=== PATIENT | female | born 1950 | race Caucasian/White ===

== ENCOUNTER 2025-06-22 11:52 | Emergency (ER) | payer BC, SELFPAY ==
--- OUTSIDE RECORDS SUMMARY | 2025-06-22 11:57 | XMS_ITS | Encounter Summary ---
Author Organization [facility] Address [address] [place] [address] Care Team Providers Care Continuity Manager Name Role Phone Niyah Worthy MD Primary Care Provider Encounter Details Date Type Department Care Team (Late st Contact Info) Description 12/11/2004 Outpatient [facility] Primary Care - [address] [address] Wellington Ayala MD NO ADDRESS ON FILE Social History Tobacco Use Types Packs/Day Years Used Date Smoking Tobacco: Never Assessed Comments Unknown Sex and Gender Information Value Date Recorded Sex Assigned at Not on file Legal Sex Female 4:59 AM BED AND BREAKFAST COOK Gender Identity Not on file Sexual Orientation Not on file documented as of this encounter Plan of Treatment Not on file documented as of this encounter Visit Diagnoses Not on filedocumented in this encounter Care Teams Continuity Manager Relationship Specialty Start Date End Date Niyah Worthy MD PCP - General Internal Medicine 07/29/14 documented as of this encounter
--- OUTSIDE RECORDS SUMMARY | 2025-06-22 11:57 | XMS_ITS | Encounter Summary ---
Author Organization [facility] Address 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
--- OUTSIDE RECORDS SUMMARY | 2025-06-22 11:57 | XMS_ITS | Encounter Summary ---
Author Organization [facility] Address [address] [place] [address] Care Team Providers Care Product Development Specialist Name Role Phone Niyah Worthy MD Primary Care Provider Encounter Details Date Type Department Care Team (Late st Contact Info) Description 08/01/2003 Outpatient [facility] Primary Care - [address] [address] Wellington Ayala MD NO ADDRESS ON FILE Social History Tobacco Use Types Packs/Day Years Used Date Smoking Tobacco: Never Assessed Comments Unknown Sex and Gender Information Value Date Recorded Sex Assigned at Not on file Legal Sex Female 4:59 AM INTERFACE ENGINEER Gender Identity Not on file Sexual Orientation Not on file documented as of this encounter Plan of Treatment Not on file documented as of this encounter Visit Diagnoses Not on filedocumented in this encounter Care Teams Product Development Specialist Relationship Specialty Start Date End Date Niyah Worthy MD PCP - General Internal Medicine 07/29/14 documented as of this encounter
--- OUTSIDE RECORDS SUMMARY | 2025-06-22 11:57 | XMS_ITS | Encounter Summary ---
Author Organization [facility] Address [address] [place] [address] Care Team Providers Care Equipment Maintenance Tech Name Role Phone Niyah Worthy MD Primary Care Provider [phone] Encounter Details Date Type Department Care Team (Late st Contact Info) Description 06/16/2005 Outpatient [facility] Primary Care - [address] [address] Wellington Ayala MD NO ADDRESS ON FILE Social History Tobacco Use Types Packs/Day Years Used Date Smoking Tobacco: Never Assessed Comments Unknown Sex and Gender Information Value Date Recorded Sex Assigned at Not on file Legal Sex Female 4:59 AM CHECKER CASHIER Gender Identity Not on file Sexual Orientation Not on file documented as of this encounter Plan of Treatment Not on file documented as of this encounter Visit Diagnoses Not on filedocumented in this encounter Care Teams Equipment Maintenance Tech Relationship Specialty Start Date End Date Niyah Worthy MD PCP - General Internal Medicine 07/29/14 documented as of this encounter
--- OUTSIDE RECORDS SUMMARY | 2025-06-22 11:57 | XMS_ITS | Encounter Summary ---
Author Organization [facility] Address [address] [place] [address] Care Team Providers Care Industrial Photographer Name Role Phone Niyah Worthy MD Primary Care Provider [phone] Encounter Details Date Type Department Care Team (Late st Contact Info) Description 03/03/2004 Outpatient [facility] Primary Care - [address] [address] Wellington Ayala MD NO ADDRESS ON FILE Social History Tobacco Use Types Packs/Day Years Used Date Smoking Tobacco: Never Assessed Comments Unknown Sex and Gender Information Value Date Recorded Sex Assigned at Not on file Legal Sex Female 4:59 AM HOME ATTENDANT Gender Identity Not on file Sexual Orientation Not on file documented as of this encounter Plan of Treatment Not on file documented as of this encounter Visit Diagnoses Not on filedocumented in this encounter Care Teams Industrial Photographer Relationship Specialty Start Date End Date Niyah Worthy MD PCP - General Internal Medicine 07/29/14 documented as of this encounter
--- OUTSIDE RECORDS SUMMARY | 2025-06-22 11:57 | XMS_ITS | Encounter Summary ---
Author Organization [facility] Address [address] [place] [address] Care Team Providers Care Glass Cutter Helper Name Role Phone Niyah Worthy MD Primary Care Provider Encounter Details Date Type Department Care Team (Late st Contact Info) Description 10/28/1999 Outpatient Historical [facility] Ravi Crews MD Social History Tobacco Use Types Packs/Day Years Used Date Smoking Tobacco: Never Assessed Comments Unknown Sex and Gender Information Value Date Recorded Sex Assigned at Not on file Legal Sex Female 4:59 AM ADMISSION NURSE COORDINATOR Gender Identity Not on file Sexual Orientation Not on file documented as of this encounter Plan of Treatment Not on file documented as of this encounter Visit Diagnoses Not on filedocumented in this encounter Care Teams Glass Cutter Helper Relationship Specialty Start Date End Date Niyah Worthy MD PCP - General Internal Medicine 07/29/14 documented as of this encounter
--- OUTSIDE RECORDS SUMMARY | 2025-06-22 11:57 | XMS_ITS | Encounter Summary ---
Author Organization [facility] Address [address] [place] [address] Care Team Providers Care Condominium Association Manager Name Role Phone Niyah Worthy MD Primary Care Provider Encounter Details Date Type Department Care Team (Late st Contact Info) Description 03/11/1999 Outpatient Historical [facility] Ravi Crews MD Social History Tobacco Use Types Packs/Day Years Used Date Smoking Tobacco: Never Assessed Comments Unknown Sex and Gender Information Value Date Recorded Sex Assigned at Not on file Legal Sex Female 4:59 AM INTAKE CLERK Gender Identity Not on file Sexual Orientation Not on file documented as of this encounter Plan of Treatment Not on file documented as of this encounter Visit Diagnoses Not on filedocumented in this encounter Care Teams Condominium Association Manager Relationship Specialty Start Date End Date Niyah Worthy MD PCP - General Internal Medicine 07/29/14 documented as of this encounter
--- OUTSIDE RECORDS SUMMARY | 2025-06-22 11:57 | XMS_ITS | Encounter Summary ---
Author Organization [facility] Address [address] [place] [address] Care Team Providers Care District Manager Major Accounts Sales Name Role Phone Niyah Worthy MD Primary Care Provider Encounter Details Date Type Department Care Team (Late st Contact Info) Description 02/26/2003 Outpatient [facility] Primary Care - [address] [address] Wellington Ayala MD NO ADDRESS ON FILE Social History Tobacco Use Types Packs/Day Years Used Date Smoking Tobacco: Never Assessed Comments Unknown Sex and Gender Information Value Date Recorded Sex Assigned at Not on file Legal Sex Female 4:59 AM QUILLER HAND Gender Identity Not on file Sexual Orientation Not on file documented as of this encounter Plan of Treatment Not on file documented as of this encounter Visit Diagnoses Not on filedocumented in this encounter Care Teams District Manager Major Accounts Sales Relationship Specialty Start Date End Date Niyah Worthy MD PCP - General Internal Medicine 07/29/14 documented as of this encounter
--- OUTSIDE RECORDS SUMMARY | 2025-06-22 11:57 | XMS_ITS | Encounter Summary ---
Author Organization [facility] Address [address] [place] [address] Care Team Providers Care Inspector Grain Mill Products Name Role Phone Niyah Worthy MD Primary Care Provider [phone] Encounter Details Date Type Department Care Team (Late st Contact Info) Description 11/27/2002 Outpatient [facility] Primary Care - [address] [address] Wellington Ayala MD NO ADDRESS ON FILE Social History Tobacco Use Types Packs/Day Years Used Date Smoking Tobacco: Never Assessed Comments Unknown Sex and Gender Information Value Date Recorded Sex Assigned at Not on file Legal Sex Female 4:59 AM ELECTRICAL SIGN WIRER Gender Identity Not on file Sexual Orientation Not on file documented as of this encounter Plan of Treatment Not on file documented as of this encounter Visit Diagnoses Not on filedocumented in this encounter Care Teams Inspector Grain Mill Products Relationship Specialty Start Date End Date Niyah Worthy MD PCP - General Internal Medicine 07/29/14 documented as of this encounter
--- OUTSIDE RECORDS SUMMARY | 2025-06-22 11:57 | XMS_ITS | Encounter Summary ---
Author Organization [facility] Address [address] [place] [address] Care Team Providers Care Audio Visual Technician Name Role Phone Niyah Worthy MD Primary Care Provider Encounter Details Date Type Department Care Team (Late st Contact Info) Description 04/16/[address] 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
--- OUTSIDE RECORDS SUMMARY | 2025-06-22 11:57 | XMS_ITS | Encounter Summary ---
Author Organization [facility] Address [address] [place] [address] Care Team Providers Care Mobile Manager Name Role Phone Niyah Worthy MD Primary Care Provider [phone] Encounter Details Date Type Department Care Team (Late st Contact Info) Description 08/28/2002 Outpatient [facility] Primary Care - [address] [phone] Wellington Ayala MD NO ADDRESS ON FILE Social History Tobacco Use Types Packs/Day Years Used Date Smoking Tobacco: Never Assessed Comments Unknown Sex and Gender Information Value Date Recorded Sex Assigned at Not on file Legal Sex Female 4:59 AM TOOL ENGINE LATHE SET UP OPERATOR Gender Identity Not on file Sexual Orientation Not on file documented as of this encounter Plan of Treatment Not on file documented as of this encounter Visit Diagnoses Not on filedocumented in this encounter Care Teams Mobile Manager Relationship Specialty Start Date End Date Niyah Worthy MD PCP - General Internal Medicine 07/29/14 documented as of this encounter
--- OUTSIDE RECORDS SUMMARY | 2025-06-22 11:57 | XMS_ITS | Encounter Summary ---
Author Organization [facility] Address [address] [place] [address] Care Team Providers Care Earth Science Technical Officer Name Role Phone Niyah Worthy MD Primary Care Provider Encounter Details Date Type Department Care Team (Late st Contact Info) Description 04/27/1999 Outpatient Historical [facility] Ravi Crews MD Social History Tobacco Use Types Packs/Day Years Used Date Smoking Tobacco: Never Assessed Comments Unknown Sex and Gender Information Value Date Recorded Sex Assigned at Not on file Legal Sex Female 4:59 AM DINKEY OPERATOR Gender Identity Not on file Sexual Orientation Not on file documented as of this encounter Plan of Treatment Not on file documented as of this encounter Visit Diagnoses Not on filedocumented in this encounter Care Teams Earth Science Technical Officer Relationship Specialty Start Date End Date Niyah Worthy MD PCP - General Internal Medicine 07/29/14 documented as of this encounter
--- OUTSIDE RECORDS SUMMARY | 2025-06-22 11:57 | XMS_ITS | Encounter Summary ---
Author Organization [facility] Address [address] [place] [address] Care Team Providers Care Round Kiln Drawer Name Role Phone Nyiah Worthy MD Primary Care Provider Encounter Details Date Type Department Care Team (Late st Contact Info) Description 12/11/[address] [facility] Primary Care - [address] [phone] Wellington Ayala MD NO ADDRESS ON FILE Social History Tobacco Use Types Packs/Day Years Used Date Smoking Tobacco: Never Assessed Comments Unknown Sex and Gender Information Value Date Recorded Sex Assigned at Not on file Legal Sex Female 4:59 AM BILLET INSPECTOR Gender Identity Not on file Sexual Orientation Not on file documented as of this encounter Plan of Treatment Not on file documented as of this encounter Visit Diagnoses Not on filedocumented in this encounter Care Teams Round Kiln Drawer Relationship Specialty Start Date End Date Niyah Worthy MD PCP - General Internal Medicine 07/29/14 documented as of this encounter
--- OUTSIDE RECORDS SUMMARY | 2025-06-22 11:58 | XMS_ITS | Encounter Summary ---
Author Organization [facility] Address 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
--- OUTSIDE RECORDS SUMMARY | 2025-06-22 11:58 | XMS_ITS | Encounter Summary ---
Author Organization [facility] Address [address] [place] [address] Care Team Providers Care Pet Crematory Worker Name Role Phone Niyah Worthy MD Primary Care Provider Encounter Details Date Type Department Care Team (Late st Contact Info) Description 12/03/2005 Outpatient [facility] Primary Care - [address] [phone] Wellington Ayala MD NO ADDRESS ON FILE Social History Tobacco Use Types Packs/Day Years Used Date Smoking Tobacco: Never Assessed Comments Unknown Sex and Gender Information Value Date Recorded Sex Assigned at Not on file Legal Sex Female 4:59 AM STRINGING MACHINE OPERATOR Gender Identity Not on file Sexual Orientation Not on file documented as of this encounter Plan of Treatment Not on file documented as of this encounter Visit Diagnoses Not on filedocumented in this encounter Care Teams Pet Crematory Worker Relationship Specialty Start Date End Date Niyah Worthy MD PCP - General Internal Medicine 07/29/14 documented as of this encounter
--- OUTSIDE RECORDS SUMMARY | 2025-06-22 11:58 | XMS_ITS | Encounter Summary ---
Author Organization [facility] Address [address] [place] [address] Care Team Providers Care Drama Therapist Name Role Phone Niyah Worthy MD Primary Care Provider Encounter Details Date Type Department Care Team (Late st Contact Info) Description 07/03/2007 Orders Only [facility] Primary Care - [address] [place] [phone] Wellington Ayala MD NO ADDRESS ON FILE Social History Tobacco Use Types Packs/Day Years Used Date Smoking Tobacco: Never Assessed Comments Unknown Sex and Gender Information Value Date Recorded Sex Assigned at Not on file Legal Sex Female 4:59 AM LINOLEUM LAYER Gender Identity Not on file Sexual Orientation Not on file documented as of this encounter Plan of Treatment Not on file documented as of this encounter Visit Diagnoses Not on filedocumented in this encounter Care Teams Drama Therapist Relationship Specialty Start Date End Date Niyah Worthy MD PCP - General Internal Medicine 07/29/14 documented as of this encounter
--- OUTSIDE RECORDS SUMMARY | 2025-06-22 11:58 | XMS_ITS | Encounter Summary ---
Author Organization [facility] Address [address] [place] [address] Care Team Providers Care Slab Tripper Name Role Phone Niyah Worthy MD Primary Care Provider Encounter Details Date Type Department Care Team (Late st Contact Info) Description 12/03/[address] [facility] Primary Care - [address] [phone] Wellington Ayala MD NO ADDRESS ON FILE Social History Tobacco Use Types Packs/Day Years Used Date Smoking Tobacco: Never Assessed Comments Unknown Sex and Gender Information Value Date Recorded Sex Assigned at Not on file Legal Sex Female 4:59 AM FIELD AGENT Gender Identity Not on file Sexual Orientation Not on file documented as of this encounter Plan of Treatment Not on file documented as of this encounter Visit Diagnoses Not on filedocumented in this encounter Care Teams Slab Tripper Relationship Specialty Start Date End Date Niyah Worthy MD PCP - General Internal Medicine 07/29/14 documented as of this encounter
--- OUTSIDE RECORDS SUMMARY | 2025-06-22 11:58 | XMS_ITS | Encounter Summary ---
Author Organization [facility] Address [address] [place] [address] Care Team Providers Care Inspector Machine Cut Glass Name Role Phone Niyah Worthy MD Primary Care Provider Encounter Details Date Type Department Care Team (Latest Contact Info) Description 07/21/2005 Outpatient [facility] NO ADDRESS ON FILE THYROIDITIS NOS (Primary Dx) Social History Tobacco Use Types Packs/Day Years Used Date Smoking Tobacco: Never Assessed Comments Unknown Sex and Gender Information Value Date Recorded Sex Assigned at Not on file Legal Sex Female 4:59 AM RENTAL CAR DELIVERER Gender Identity Not on file Sexual Orientation Not on file documented as of this encounter Plan of Treatment Not on file documented as of this encounter Visit Diagnoses Diagnosis Thyroiditis, unspecified- Primary documented in this encounter Care Teams Inspector Machine Cut Glass Relationship Specialty Start Date End Date Niyah Worthy MD PCP - General Internal Medicine 07/29/14 documented as of this encounter
--- OUTSIDE RECORDS SUMMARY | 2025-06-22 11:58 | XMS_ITS | Encounter Summary ---
Author Organization [facility] Address [address] [place] [address] Care Team Providers Care Military Exchange Wireless Manager Name Role Phone Niyah Worthy MD Primary Care Provider [phone] Encounter Details Date Type Department Care Team (Late st Contact Info) Description 09/02/2006 Outpatient [facility] Primary Care - [address] [address] Wellington Ayala MD NO ADDRESS ON FILE Social History Tobacco Use Types Packs/Day Years Used Date Smoking Tobacco: Never Assessed Comments Unknown Sex and Gender Information Value Date Recorded Sex Assigned at Not on file Legal Sex Female 4:[address] SUPERVISOR Gender Identity Not on file Sexual Orientation Not on file documented as of this encounter Plan of Treatment Not on file documented as of this encounter Visit Diagnoses Not on filedocumented in this encounter Care Teams Military Exchange Wireless Manager Relationship Specialty Start Date End Date Niyah Worthy MD PCP - General Internal Medicine 07/29/14 documented as of this encounter
--- OUTSIDE RECORDS SUMMARY | 2025-06-22 11:58 | XMS_ITS | Encounter Summary ---
Author Organization [facility] Address [address] [place] [address] Care Team Providers Care Loan Specialist Name Role Phone Niyah Worthy MD Primary Care Provider Encounter Details Date Type Department Care Team (Late st Contact Info) Description 04/06/2007 Outpatient [facility] Primary Care - [address] [phone] Wellington Ayala MD NO ADDRESS ON FILE Social History Tobacco Use Types Packs/Day Years Used Date Smoking Tobacco: Never Assessed Comments Unknown Sex and Gender Information Value Date Recorded Sex Assigned at Not on file Legal Sex Female 4:59 AM SUPERVISOR PAINT ROLLER COVERS Gender Identity Not on file Sexual Orientation Not on file documented as of this encounter Plan of Treatment Not on file documented as of this encounter Visit Diagnoses Not on filedocumented in this encounter Care Teams Loan Specialist Relationship Specialty Start Date End Date Niyah Worthy MD PCP - General Internal Medicine 07/29/14 documented as of this encounter
--- OUTSIDE RECORDS SUMMARY | 2025-06-22 11:58 | XMS_ITS | Encounter Summary ---
Author Organization [facility] Address [address] [place] [address] Care Team Providers Care Mechanical Adjuster Name Role Phone Niyah Worthy MD Primary Care Provider Encounter Details Date Type Department Care Team (Late st Contact Info) Description 09/02/2006 Outpatient [facility] Primary Care - [address] [phone] Wellington Ayala MD NO ADDRESS ON FILE Social History Tobacco Use Types Packs/Day Years Used Date Smoking Tobacco: Never Assessed Comments Unknown Sex and Gender Information Value Date Recorded Sex Assigned at Not on file Legal Sex Female 4:59 AM RANGE ECOLOGIST Gender Identity Not on file Sexual Orientation Not on file documented as of this encounter Plan of Treatment Not on file documented as of this encounter Visit Diagnoses Not on filedocumented in this encounter Care Teams Mechanical Adjuster Relationship Specialty Start Date End Date Niyah Worthy MD PCP - General Internal Medicine 07/29/14 documented as of this encounter
--- OUTSIDE RECORDS SUMMARY | 2025-06-22 11:58 | XMS_ITS | Encounter Summary ---
Author Organization [facility] Address [address] [place] [address] Care Team Providers Care Candy Forming Machine Operator Name Role Phone Niyah Worthy MD Primary Care Provider Encounter Details Date Type Department Care Team (Latest Contact Info) Description 09/02/2006 Outpatient Historical [facility] Primary Care - [address] [place] [phone] Wellington Ayala MD NO ADDRESS ON FILE Other and Unspecified Hyperlipidemia (Primary Dx) Social History Tobacco Use Types Packs/Day Years Used Date Smoking Tobacco: Never Assessed Comments Unknown Sex and Gender Information Value Date Recorded Sex Assigned at Not on file Legal Sex Female 4:59 AM SYSTEMS INTEGRATION ENGINEER Gender Identity Not on file Sexual Orientation Not on file documented as of this encounter Plan of Treatment Not on file documented as of this encounter Procedures Procedure Name Priority Date/Time Associated Diagnosis Comments TSH WITH REFLEX FT4 AND FT3 Routine 09/02/2006 3:16 PM SYSTEMS INTEGRATION ENGINEER CBC WITH DIFFERENTIAL Routine 09/02/2006 3:16 PM SYSTEMS INTEGRATION ENGINEER CBC WITH DIFFERENTIAL Routine 09/02/2006 3:16 PM SYSTEMS INTEGRATION ENGINEER ALT Routine 09/02/2006 3:16 PM SYSTEMS INTEGRATION ENGINEER LIPID PANEL Routine 09/02/2006 3:16 PM SYSTEMS INTEGRATION ENGINEER documented in this encounter Results * CBC WITH DIFFERENTIAL (09/02/2006 3:16 PM SYSTEMS INTEGRATION ENGINEER) NEUTROPHILS 60 45 - 70 % INTERFAC E SYSTEM LYMPHOCYTES 28 16 - 45 % INTERFAC E SYSTEM MONOCYTES 8 3 - 13 % INTERFACE SYSTEM EOSINOPHILS 4 0 - 7 % INTERFAC E SYSTEM BASOPHILS 1 0 - 2 % INTERFACE SYSTEM NEUTROPHIL ABSOLUTE 3.55 1.90 - 7.00 K/uL INTERFACE SYSTEM LYMPHOCYTE ABSOLUTE 1.63 0.70 - 4.50 K/uL INTERFACE SYSTEM MONOCYTE ABSOLUTE 0.46 0.10 - 1.30 K/uL INTERFACE SYSTEM EOSINOPHIL ABSOLUTE 0.23 0.00 - 0.70 K/uL INTERFACE SYSTEM BASOPHILS ABSOLUTE 0.04 0.00 - 0.20 K/uL INTERFACE SYSTEM 09/02/2006 3:16 PM SYSTEMS INTEGRATION ENGINEER Wellington Ayala MD HEMATOLOGY ORDERABLES Edited Performing Organization Address City/State/[facility] Co de Phone Number INTERFACE SYSTEM Refer to clinic/hospital department * CBC WITH DIFFERENTIAL (09/02/2006 3:16 PM SYSTEMS INTEGRATION ENGINEER) Pathologist [facility] WBC 5.9 4.0 - 9.8 K/uL INTERFACE SYSTEM RBC 4.79 3.90 - 4.90 M/uL INTERFACE SYSTEM HEMOGLOBIN 13.4 11.8 - 14.8 g/dL INTERFACE SYSTEM HEMATOCRIT 40.8 35.5 - 44.0 % INTERFACE SYSTEM MCV 85.2 82.0 - 99.0 fL INTERFACE SYSTEM MCH 28.0 27.2 - 32.6 pg INTERFACE SYSTEM MCHC 32.8 31.5 - 35.5 % INTERFACE SYSTEM RDW 13.2 11.5 - 14.5 % INTERFACE SYSTEM RDW-STDEV 41.0 37.1 - 48.7 fL INTERFACE SYSTEM PLATELETS 302 140 - 350 K/uL INTERFACE SYSTEM MPV 10.0 9.3 - 12.4 fL INTERFACE SYSTEM 09/02/2006 3:16 PM SYSTEMS INTEGRATION ENGINEER Wellington Ayala MD HEMATOLOGY ORDERABLES Edited Performing Organization Address City/[facility] Co de Phone Number INTERFACE SYSTEM Refer to clinic/hospital department * TSH WITH REFLEX FT4 AND FT3 (09/02/2006 3:16 PM SYSTEMS INTEGRATION ENGINEER) Pathologist [facility] TSH 2.02 0.27 - 4.20 uU/mL INTERFACE SYSTEM 09/02/2006 3:16 PM SYSTEMS INTEGRATION ENGINEER us Wellington Ayala MD CHEMISTRY ORDERABLES Edited INTERFACE SYSTEM Refer to clinic/hospital department * (ABNORMAL) ALT (09/02/2006 3:16 PM SYSTEMS INTEGRATION ENGINEER) ALT 32(H) 0 - 31 U/L INTERFACE SYSTEM 09/02/2006 3:16 PM SYSTEMS INTEGRATION ENGINEER us Wellington Ayala MD CHEMISTRY ORDERABLES Edited Performing Organization Address City/[facility] Co de Phone Number INTERFACE SYSTEM Refer to clinic/hospital department * (ABNORMAL) LIPID PANEL (09/02/2006 3:16 PM SYSTEMS INTEGRATION ENGINEER) CHOLESTEROL 194 100 - 199 mg/dL INTERFACE SYSTEM TRIGLYCERIDE 245(H) 10 - 149 mg/dL INTERFACE SYSTEM HDL 45 40 - 59 mg/dL INTERFACE SYSTEM CHOL/HDL RATIO 4.3 2.0 - 5.0 INTER FACE SYSTEM LDL CALCULATED 100(H) <=99 mg/dL INTERFACE SYSTEM LIPID PANEL COMMENT See Below INTERFACE SYSTEM Comment: The adult ATP and pediatric NCEP classifications for lipids are available on the [facility] at: [email or web address] Select: Lab Policies and Procedures Select: Reference Ranges - Lipids 09/02/2006 3:16 PM SYSTEMS INTEGRATION ENGINEER us Wellington Ayala MD CHEMISTRY ORDERABLES Edited INTERFACE SYSTEM Refer to clinic/hospital department documented in this encounter Visit Diagnoses Diagnosis Other and unspecified hyperlipidemia- Primary documented in this encounter Care Teams Candy Forming Machine Operator Relationship Specialty Start Date End Date Niyah Worthy MD PCP - General Internal Medicine 07/29/14 documented as of this encounter
--- OUTSIDE RECORDS SUMMARY | 2025-06-22 11:58 | XMS_ITS | Encounter Summary ---
Author Organization [facility] Address [address] [place] [address] Care Team Providers Care Bead Trimmer Name Role Phone Niyah Worthy MD Primary Care Provider [phone] Encounter Details Date Type Department Care Team (Late st Contact Info) Description 06/16/2005 Outpatient [facility] Primary Care - [address] [phone] Wellington Ayala MD NO ADDRESS ON FILE Social History Tobacco Use Types Packs/Day Years Used Date Smoking Tobacco: Never Assessed Comments Unknown Sex and Gender Information Value Date Recorded Sex Assigned at Not on file Legal Sex Female 4:59 AM AIRFIELD ENGINEER OFFICER Gender Identity Not on file Sexual Orientation Not on file documented as of this encounter Plan of Treatment Not on file documented as of this encounter Visit Diagnoses Not on filedocumented in this encounter Care Teams Bead Trimmer Relationship Specialty Start Date End Date Niyah Worthy MD PCP - General Internal Medicine 07/29/14 documented as of this encounter
--- OUTSIDE RECORDS SUMMARY | 2025-06-22 11:58 | XMS_ITS | Encounter Summary ---
Author Organization [facility] Address [address] [place] [address] Care Team Providers Care Account Support Manager Name Role Phone Niyah Worthy MD Primary Care Provider [phone] Encounter Details Date Type Department Care Team (Latest Contact Info) Description 04/06/[address] [facility] Primary Care - [address] [place] [phone] Wellington Ayala MD NO ADDRESS ON FILE Other and Unspecified Hyperlipidemia (Primary Dx) Social History Tobacco Use Types Packs/Day Years Used Date Smoking Tobacco: Never Assessed Comments Unknown Sex and Gender Information Value Date Recorded Sex Assigned at Not on file Legal Sex Female 4:59 AM INTERNAL CONTROL CONSULTANT Gender Identity Not on file Sexual Orientation Not on file documented as of this encounter Plan of Treatment Not on file documented as of this encounter Procedures Procedure Name Priority Date/Time Associated Diagnosis Comments HEPATIC FUNCTION PANEL Routine 04/06/2007 11:18 AM CDT LIPID PANEL Routine 04/06/2007 11:18 AM CDT documented in this encounter Results * (ABNORMAL) HEPATIC FUNCTION PANEL (04/06/2007 11:18 AM CDT) ALKALINE PHOSPHATASE 116(H) 35 - 104 U/L INTERFACE SYSTEM AST 24 12 - 32 U/L INTERFACE SYSTEM ALT 21 0 - 31 U/L INTERFACE SYSTEM TOTAL PROTEIN 7.8 6.3 - 8.6 g/dL INTERFACE SYSTEM ALBUMIN 4.5 3.4 - 4.8 g/dL INTERFACE SYSTEM BILIRUBIN TOTAL 0.3 0.2 - 1.0 mg/dL INTERFACE SYSTEM BILIRUBIN DIRECT 0.1 0.0 - 0.3 mg/dL INTERFACE SYSTEM 04/06/2007 11:1 8 AM CDT Wellington Ayala MD CHEMISTRY ORDERABLES Edited Performing Organization Address City/[facility] Co de Phone Number INTERFACE SYSTEM Refer to clinic/hospital department * LIPID PANEL (04/06/2007 11:18 AM CDT) CHOLESTEROL 141 100 - 199 mg/dL INTERFACE SYSTEM TRIGLYCERIDE 120 10 - 149 mg/dL INTERFACE SYSTEM HDL 44 40 - 59 mg/dL INTERFACE SYSTEM CHOL/HDL RATIO 3.2 2.0 - 5.0 INTER FACE SYSTEM LDL CALCULATED 73 <=99 mg/dL INTERFACE SYSTEM LIPID PANEL COMMENT See Below INTERFACE SYSTEM Comment: The adult ATP and pediatric NCEP classifications for lipids are available on the [facility] Intranet at: [email or web address] Select: Lab Policies and Procedures,Current Select: Lipid Panel Interpretation 04/06/2007 11:1 8 AM CDT us Wellington Ayala MD CHEMISTRY ORDERABLES Edited Performing Organization Address City/[facility] Co de Phone Number INTERFACE SYSTEM Refer to clinic/hospital department documented in this encounter Visit Diagnoses Diagnosis Other and unspecified hyperlipidemia- Primary documented in this encounter Care Teams Account Support Manager Relationship Specialty Start Date End Date Niyah Worthy MD PCP - General Internal Medicine 07/29/14 documented as of this encounter
--- OUTSIDE RECORDS SUMMARY | 2025-06-22 11:58 | XMS_ITS | Encounter Summary ---
Author Organization [facility] Address [address] [place] [address] Care Team Providers Care Rn Mds Name Role Phone Niyah Worthy MD Primary Care Provider Encounter Details Date Type Department Care Team (Latest Contact Info) Description 12/03/2005 Outpatient Historical [facility] Primary Care - [address] [place] [phone] Wellington yAala MD NO ADDRESS ON FILE Other and Unspecified Hyperlipidemia (Primary Dx) Social History Tobacco Use Types Packs/Day Years Used Date Smoking Tobacco: Never Assessed Comments Unknown Sex and Gender Information Value Date Recorded Sex Assigned at Not on file Legal Sex Female 4:59 AM HAND PATCHER Gender Identity Not on file Sexual Orientation Not on file documented as of this encounter Plan of Treatment Not on file documented as of this encounter Procedures Procedure Name Priority Date/Time Associated Diagnosis Comments T3 FREE Routine 12/03/2005 4:51 PM CDT TSH Routine 12/03/2005 4:51 PM CDT T4 FREE Routine 12/03/2005 4:51 PM CDT LIPID PANEL Routine 12/03/2005 4:51 PM CDT documented in this encounter Results * T3 FREE (12/03/2005 4:51 PM CDT) T3 FREE 3.4 2.5 - 4.4 pg/mL INTERFACE SYSTEM 12/03/2005 4:51 PM CDT us Wellington Ayala MD CHEMISTRY ORDERABLES Final Re sult Performing Organization Address [facility] Phone Number INTERFACE SYSTEM Refer to clinic/hospital department * T4 FREE (12/03/2005 4:51 PM CDT) T4 FREE 1.1 0.9 - 1.7 ng/dL INTERFACE SYSTEM 12/03/2005 4:51 PM CDT us Wellington Ayala MD CHEMISTRY ORDERABLES Final Re sult Performing Organization Address [facility] Phone Number INTERFACE SYSTEM Refer to clinic/hospital department * TSH (12/03/2005 4:51 PM CDT) TSH 2.16 0.27 - 4.20 uU/mL INTERFACE SYSTEM 12/03/2005 4:51 PM CDT us Wellington Ayala MD CHEMISTRY ORDERABLES Final Re sult Performing Organization Address [facility] Phone Number INTERFACE SYSTEM Refer to clinic/hospital department * (ABNORMAL) LIPID PANEL (12/03/2005 4:51 PM CDT) CHOLESTEROL 221(H) 100 - 199 mg/dL INTERFACE SYSTEM TRIGLYCERIDE 271(H) 10 - 149 mg/dL INTERFACE SYSTEM HDL 52 40 - 59 mg/dL INTERFACE SYSTEM CHOL/HDL RATIO 4.3 2.0 - 5.0 INTER FACE SYSTEM LDL CALCULATED 115(H) <=99 mg/dL INTERFACE SYSTEM LIPID PANEL COMMENT See Below INTERFACE SYSTEM Comment: The adult ATP and pediatric NCEP classifications for lipids are available on the [facility] Intranet at: [email or web address]ablesCambridge Temperature [facility] [email or web address] Select: Lab Policies and Procedures Select: Reference Ranges - Lipids 12/03/2005 4:51 PM CDT us Wellington Ayala MD CHEMISTRY ORDERABLES Final Re sult INTERFACE SYSTEM Refer to clinic/hospital department documented in this encounter Visit Diagnoses Diagnosis Other and unspecified hyperlipidemia- Primary documented in this encounter Care Teams Rn Mds Relationship Specialty Start Date End Date Niyah Worthy MD PCP - General Internal Medicine 07/29/14 documented as of this encounter
--- OUTSIDE RECORDS SUMMARY | 2025-06-22 11:58 | XMS_ITS | Encounter Summary ---
Author Organization [facility] Address [address] [place] [address] Care Team Providers Care Senior Bi Developer Name Role Phone Niyah Worthy MD Primary Care Provider Encounter Details Date Type Department Care Team (Late st Contact Info) Description 04/06/2007 Outpatient [facility] Primary Care - [address] [phone] Wellington Ayala MD NO ADDRESS ON FILE Social History Tobacco Use Types Packs/Day Years Used Date Smoking Tobacco: Never Assessed Comments Unknown Sex and Gender Information Value Date Recorded Sex Assigned at Not on file Legal Sex Female 4:59 AM COMPUTER TECHNOLOGY INSTRUCTOR Gender Identity Not on file Sexual Orientation Not on file documented as of this encounter Plan of Treatment Not on file documented as of this encounter Visit Diagnoses Not on filedocumented in this encounter Care Teams Senior Bi Developer Relationship Specialty Start Date End Date Niyah Worthy MD PCP - General Internal Medicine 07/29/14 documented as of this encounter
[2025-06-22 12:10] VITALS: BP 134/71; PULSE 84; RESP 16; TEMP 36.5; O2SAT 100
--- NOTE | 2025-06-22 12:20 | ED.URI ---
HPI - URI/Sore Throat General Chief Complaint: Upper Respiratory Infection Stated Complaint: Sinus Time Seen by Provider: 06/22/25 12:20 Source: patient and RN notes reviewed Mode of arrival: ambulatory Limitations: no limitations History of Present Illness HPI Narrative: 74-year-old female presents with concern for one-week history of sinus congestion and pressure, cough, drainage. Reports her drainage has turned yellow and thick. Reports she started feeling fevers today. She has been taking DayQuil and NyQuil. Reports cough keeping her awake at night. MD elicited complaint: cough and nasal congestion Related Data Home Medications ?Medication ?Instructions ?Recorded ?Confirmed ?Last Taken ?Type aripiprazole 5 mg tablet 5 mg PO DAILY 03/07/23 03/07/23 Unknown History celecoxib 200 mg capsule 200 mg PO DAILY 03/07/23 03/07/23 Unknown History desvenlafaxine succinate 50 mg 50 mg PO DAILY 03/07/23 03/07/23 Unknown History tablet,extended release 24 hr (Pristiq) dulaglutide 0.75 mg/0.5 mL 0.75 mg subcut WEEKLY 03/07/23 03/07/23 Unknown History subcutaneous pen injector (Trulicity) escitalopram oxalate 5 mg tablet 5 mg PO DAILY 03/07/23 03/07/23 Unknown History finasteride 5 mg tablet 5 mg PO DAILY 03/07/23 03/07/23 Unknown History levothyroxine 137 mcg tablet 137 mcg PO DAILY 03/07/23 03/07/23 Unknown History (Synthroid) lorazepam 1 mg tablet 1 mg PO QHS PRN 03/07/23 03/07/23 Unknown History metformin 500 mg tablet 500 mg PO TID 03/07/23 03/07/23 Unknown History metoprolol succinate 50 mg 50 mg PO BID 03/07/23 03/07/23 Unknown History tablet,extended release 24 hr mirabegron 50 mg tablet,extended 50 mg PO DAILY 03/07/23 03/07/23 Unknown History release 24 hr (Myrbetriq) multivitamin 1 tablet PO DAILY 03/07/23 03/07/23 Unknown History rosuvastatin 20 mg tablet 20 mg PO DAILY 03/07/23 03/07/23 Unknown History vitamin B complex (B 1 tablet PO DAILY 03/07/23 03/07/23 Unknown History Complex-Vitamin B12 tablet) Allergies Allergy/AdvReac Type Severity Reaction Status Date / Time aspirin Allergy Severe affects Verified 06/22/25 12:23 liver enzymes penicillin G Allergy Intermediate rash Verified 06/22/25 12:23 Review of Systems Review of Systems: CONSTITUTIONAL: Denies malaise, chills, sweats, or fever. EYES: Denies visual changes, redness, or discharge. ENT: Reports rhinorrhea, congestion, sinus pain CARDIOVASCULAR: Denies chest pain, palpitations, or edema. RESPIRATORY: Reports productive cough. Denies dyspnea. GASTROINTESTINAL: Denies abdominal pain, nausea, vomiting, diarrhea SKIN: Denies rash or itching. MUSCULOSKELETAL: Denies myalgia. NEUROLOGIC: Denies headache. All systems reviewed & are unremarkable except as noted in HPI and below PMFSH Past Medical History Medical History (Updated 06/22/25 @ 12:25 by Eloisa Olivo APRN) Gallbladder disorder Cancer Goiter FH: mastectomy Surgical History Surgical History (Updated 03/07/23 @ 08:06 by Rianna Morris CMA) H/O adenoidectomy H/O shoulder replacement H/O thyroidectomy Total knee replacement status H/O: hysterectomy S/P tonsillectomy Family History Family History (Updated 03/07/23 @ 08:07 by Rianna Morris CMA) Father Heart disease Social History Social History (Updated 03/07/23 @ 08:10 by Rianna Morris CMA) Smoking status: Never smoker Alcohol intake: never Lack of Transportation: No Lack of Food: Never True Current Housing: I Have Housing Concerned About Future Housing: No Difficulty Paying Gas/Electric Bills: No Difficulty Paying for Meds: No Currently Unemployed: No Education: Bachelor's Degree Difficulty w/ Childcare or Family Care: No Comments At time of signature, agree with nursing past medical, surgical, social and family history. There is no relevant family history pertinent to the presenting complaint Exam Narrative: GENERAL: Well-appearing, well-nourished, and in no acute distress. HEAD: Normocephalic EYES: PERRLA, conjunctivae clear ENT: Nares clear, turbinates edematous and erythematous. Mucous membranes moist. TM pearly yeh with dull light reflex bilaterally; no tragal tenderness. Oropharynx not erythematous without lesions. Tonsils not enlarged and without exudate, no drooling, no hoarseness, no trismus, uvula midline. NECK: Supple. No lymphadenopathy CHEST: Clear to auscultation, breath sounds equal. No wheezing, rhonchi, rales, or stridor. No respiratory distress, speaks in full sentences. HEART: Regular rate and rhythm. No murmur heard. SKIN: Warm, dry, no rash. NEURO: Alert and oriented x3. PSYCH: Normal mood and affect Course Course Level of Care: [facility] Visit Vital Signs Vital signs: Vital Signs Temperature 97.7 F 06/22/25 12:10 Pulse Rate 84 06/22/25 12:10 Respiratory Rate 16 06/22/25 12:10 Blood Pressure 134/71 06/22/25 12:10 Pulse Oximetry 100 06/22/25 12:10 Oxygen Delivery Room Air 06/22/25 12:10 Temperature 97.7 F 06/22/25 12:10 Pulse Rate 84 06/22/25 12:10 Respiratory Rate 16 06/22/25 12:10 Blood Pressure 134/71 06/22/25 12:10 Pulse Oximetry 100 06/22/25 12:10 Oxygen Delivery Room Air 06/22/25 12:10 MDM Differential Diagnosis Differential Diagnosis: I evaluated this patient in the [facility]. History is obtained from patient who is an independent historian and physical exam was performed.? Available medical records were reviewed. ? Exam findings and relevant testing show no acute concerns or changes; patient is non-toxic appearing and is in no distress. ? Differential diagnosis considered: Denis virus, strep pharyngitis, allergic rhinitis, upper respiratory tract infection, sinusitis, rhinosinusitis, nasopharyngitis. viral pharyngitis, otitis media, otitis externa, pneumonia, bronchitis, viral cough syndrome, viral syndrome, and influenza. Differential diagnosis and treatment plan were discussed with the patient. Patient agrees with discussion and after shared medical decision making agrees with plan of care. All questions were answered to the patient's satisfaction. Patient is appropriate for outpatient treatment and follow-up. Discharge Plan Discharge Clinical Impression: Sinobronchitis Patient Disposition: Home Condition: Stable Instructions: Antibiotic Form, Sinusitis (ED) Additional Instructions: 1) Please follow-up with your primary care doctor in the next 1-2 days. 2) If you have any worsening of symptoms or any other urgent concerns please go to the ER. 3) Please take medications as prescribed and continue taking your home medications as usual. 4) Please read and follow information included in discharge instructions. Patient Language: Slovenian Prescriptions: New doxycycline monohydrate 100 mg tablet 100 mg PO BID 7 Days Qty: 14 0RF methylprednisolone [Medrol (Earl)] 4 mg tablets,dose pack See Rx Instructions .ROUTE .COMPLEX Qty: 21 0RF Rx Instructions: orally per package directions No Action metformin 500 mg tablet 500 mg PO TID Trulicity 0.75 mg/0.5 mL pen injector 0.75 mg subcut WEEKLY levothyroxine [Synthroid] 137 mcg tablet 137 mcg PO DAILY metoprolol succinate 50 mg tablet extended release 24 hr 50 mg PO BID aripiprazole 5 mg tablet 5 mg PO DAILY escitalopram oxalate 5 mg tablet 5 mg PO DAILY lorazepam 1 mg tablet 1 mg PO QHS PRN desvenlafaxine succinate [Pristiq] 50 mg tablet extended release 24 hr 50 mg PO DAILY Myrbetriq 50 mg tablet extended release 24 hr 50 mg PO DAILY finasteride 5 mg tablet 5 mg PO DAILY rosuvastatin 20 mg tablet 20 mg PO DAILY celecoxib 200 mg capsule 200 mg PO DAILY vitamin B complex [B Complex-Vitamin B12] Tablet 1 tablet PO DAILY multivitamin Tablet 1 tablet PO DAILY Follow-up/Referrals: UNKNOWN,DOCTOR [Primary Care Provider] Time of Disposition: 12:26
== END 2025-06-22 12:31 | disposition home or self-care (01) ==
PROVIDERS: Emergency Provider Nurse Practitioner
DX: J32.9 Chronic sinusitis, unspecified (principal); J40 Bronchitis, not specified as acute or chronic; E11.9 Type 2 diabetes mellitus without complications; Z79.84 Long term (current) use of oral hypoglycemic drugs; Z79.85 Long-term (current) use of injectable non-insulin antidiabetic drugs; E89.0 Postprocedural hypothyroidism; F41.9 Anxiety disorder, unspecified; Z85.9 Personal history of malignant neoplasm, unspecified
CPT/HCPCS: 99213; G0463